=== PATIENT | male | born 1980 | race Two or more races ===

== ENCOUNTER 2018-09-25 17:13 | Emergency (ER) ==
[2018-09-25 17:18] VITALS: BP 126/84; TEMP 98.2; BMI 31.3
--- NOTE | 2018-09-25 17:42 | ED.PDOC ---
General ED Provider: Dr. TAMARA RIZZO Chief Complaint: Wrist Pain/Injury Stated Complaint: Lt Wrist Pain. Injured when attempting to do a back flip 2 days ago. Landed with hand outstretched. Time Seen by Physician: 17:20 Mode of Arrival: Walk-In Information Source: Patient Exam Limitations: No limitations Nursing and Triage Documentation Reviewed and Agree: Yes Does patient meet sepsis criteria?: No If yes, has appropriate treatment been initiated?: No System Inflammatory Response Syndrome: Not Applicable Sepsis Protocol: For patient's 13 years and over: Temp is 96.8 and below OR 101 and greater Pulse >90 BPM Resp >20/minute Acutely Altered Mental Status Are patient's symptoms suggestive of a new infection, such as: -Pneumonia -Skin, Soft Tissue -Endocarditis -UTI -Bone, Joint Infection -Implantable Device -Acute Abdominal Infection -Wound Infection -Meningitis -Blood Stream Catheter Infection -Unknown Musculoskeletal Complaint Exam - Hand/Wrist Complaint/Exam Location of Pain: Reports: Left, Wrist Mechanism of Injury: Reports: Trauma Onset/Duration: 2 days Symptoms Are: Still present Onset of Pain: Reports: Immediate Initial Severity: Severe Current Severity: Moderate Location: Reports: Diffuse Character: Reports: Aching, Throbbing Alleviating: Reports: Rest Aggravating: Reports: Movement Associated Signs and Symptoms: Reports: Swelling (pain ) Dominant Hand: Right Related Surgical History: Reports: None Hand/Wrist Findings: Present: Swelling Tenderness: Present: Radius Differential Diagnoses: Closed Fracture, Sprain, Strain Review of Systems - Review Of Systems Constitutional: Reports: No symptoms Eyes: Reports: No symptoms Ears, Nose, Mouth, Throat: Reports: No symptoms Respiratory: Reports: No symptoms Cardiac: Reports: No symptoms GI: Reports: No symptoms : Reports: No symptoms Musculoskeletal: Reports: No symptoms Skin: Reports: No symptoms Neurological: Reports: No symptoms Endocrine: Reports: No symptoms Hematologic/Lymphatic: Reports: No symptoms All Other Systems: Reviewed and Negative Past Medical History - Past Medical History Previously Healthy: Yes Endocrine: Reports: None Cardiovascular: Reports: None Respiratory: Reports: None Hematological: Reports: None Gastrointestinal: Reports: None Genitourinary: Reports: None Neuro/Psych: Reports: None Musculoskeletal: Reports: None Cancer: Reports: None - Surgical History General Surgical History: Reports: None - Family History Family History: Reports: None - Social History Smoking Status: Current every day smoker Hx Substance Use: No Alcohol Screening: None Physical Exam - Physical Exam Appearance: Well-appearing, No pain distress, Well-nourished Eyes: TIMO, EOMI, Conjunctiva clear ENT: Ears normal, Nose normal, Oropharynx normal Respiratory: Airway patent, Breath sounds clear, Breath sounds equal, Respirations nonlabored Cardiovascular: RRR, Pulses normal, No rub, No murmur GI/: Soft, Nontender, No masses, Bowel sounds normal, No Organomegaly Musculoskeletal: No calf tenderness, Limited ROM, Limited strength, Edema (Lt wrist) Skin: Warm, Dry, Normal color Neurological: Sensation intact, Motor intact, Reflexes intact, Cranial nerves intact, Alert, Oriented Psychiatric: Affect appropriate, Mood appropriate Critical Care Note - Critical Care Note Total Time (mins): 0 Course - Course Orders, Labs, Meds: Orders Category Date Time Status WRIST, LEFT 3 VIEWS Stat RADS 09/25/18 17:40 Completed Vital Signs: Temp Pulse Resp BP Pulse Ox 09/25/18 17:14 98.2 F 104 H 16 126/84 97 Departure - Departure Time of Disposition: 18:45 Disposition: HOME SELF-CARE Discharge Problem: Wrist strain Instructions: Wrist Injury (ED) Condition: Good Pt referred to PMD for follow-up: Yes (PCP in 1 week) IPMP verified?: No Additional Instructions: Wrist splint(from Home) Take Ibuprofen for pain relief Ice pack to area to help with swelling Allergies/Adverse Reactions: Allergies No Known Allergies Allergy (Unverified 09/25/18 17:17) Home Medications: Ambulatory Orders 1 [No Reported Medications] 09/25/18 Disposition Discussed With: Patient, Family
--- NOTE | 2018-09-25 18:44 | DI ---
EXAM: Left wrist; PA, lateral, and oblique views HISTORY: Pain and swelling after fall COMPARISON: None FINDINGS: There is no acute fracture or dislocation. Joint spaces and alignment are maintained. Soft tissues are unremarkable. OPINION: No acute osseous abnormality of the wrist.
== END 2018-09-25 19:01 | disposition home or self-care (01) ==
LOC: ED 17:13
DX: S66.912A Strain of unspecified muscle, fascia and tendon at wrist and hand level, left hand, initial encounter (principal); W19.XXXA Unspecified fall, initial encounter; F17.210 Nicotine dependence, cigarettes, uncomplicated
CPT/HCPCS: 99282

== ENCOUNTER 2019-04-20 17:57 | Emergency (ER) ==
[2019-04-20 18:06] VITALS: BP 127/77; TEMP 99.4; BMI 32.0
[2019-04-20] MEDS ORDERED: BACTRIM DS 800/160 MG PO STA (18:10)
[2019-04-20] MEDS ORDERED: ROCEPHIN IM STA (18:10)
[2019-04-20] MEDS ORDERED: LIDOCAINE HCL 1% SDV IM STA (18:10)
--- NOTE | 2019-04-20 18:15 | ED.PDOC ---
General ED Provider: Dr. DANIEL KAISER Chief Complaint: Abscess Stated Complaint: abcess ongroin /scrotum Time Seen by Physician: 18:00 Mode of Arrival: Walk-In Information Source: Patient Exam Limitations: No limitations Primary Care Provider: MARCIAL CUELLO Nursing and Triage Documentation Reviewed and Agree: Yes Does patient meet sepsis criteria?: No System Inflammatory Response Syndrome: Not Applicable Sepsis Protocol: For patient's 13 years and over: Temp is 96.8 and below OR 101 and greater Pulse >90 BPM Resp >20/minute Acutely Altered Mental Status Are patient's symptoms suggestive of a new infection, such as: -Pneumonia -Skin, Soft Tissue -Endocarditis -UTI -Bone, Joint Infection -Implantable Device -Acute Abdominal Infection -Wound Infection -Meningitis -Blood Stream Catheter Infection -Unknown Review of Systems - Review Of Systems Constitutional: Reports: No symptoms Eyes: Reports: No symptoms Ears, Nose, Mouth, Throat: Reports: No symptoms Respiratory: Reports: No symptoms Cardiac: Reports: No symptoms GI: Reports: No symptoms : Reports: No symptoms Musculoskeletal: Reports: No symptoms Skin: Reports: Other (ABCESS SEE PHOTOS) Neurological: Reports: No symptoms Endocrine: Reports: No symptoms Hematologic/Lymphatic: Reports: No symptoms All Other Systems: Reviewed and Negative Past Medical History - Past Medical History Previously Healthy: Yes Endocrine: Reports: None Cardiovascular: Reports: None Respiratory: Reports: None Hematological: Reports: None Gastrointestinal: Reports: None Genitourinary: Reports: None Neuro/Psych: Reports: None Musculoskeletal: Reports: None Cancer: Reports: None - Surgical History General Surgical History: Reports: None - Family History Family History: Reports: None - Social History Smoking Status: Current every day smoker, Light tobacco smoker Hx Substance Use: No Alcohol Screening: Occasionally Physical Exam - Physical Exam Appearance: Well-appearing, No pain distress, Well-nourished Eyes: TIMO, EOMI, Conjunctiva clear ENT: Ears normal, Nose normal, Oropharynx normal Respiratory: Airway patent, Breath sounds clear, Breath sounds equal, Respirations nonlabored Cardiovascular: RRR, Pulses normal, No rub, No murmur GI/: Soft, Nontender, No masses, Bowel sounds normal, No Organomegaly Musculoskeletal: Normal strength, ROM intact, No edema, No calf tenderness Skin: Warm, Dry (ABSCESS OF THE RIGHT SCROTUM AND INNER TIGH EACH ABSCESS MEASURE 4MM SEE PHOTOS) Neurological: Sensation intact, Motor intact, Reflexes intact, Cranial nerves intact, Alert, Oriented Psychiatric: Affect appropriate, Mood appropriate Critical Care Note - Critical Care Note Total Time (mins): 0 Course - Course Orders, Labs, Meds: Orders Category Date Time Status Ceftriaxone Sodium [Rocephin] MEDS 04/20/19 18:10 Discontinued 1 gm IM ONCE STA Lidocaine HCl/Pf [Lidocaine HCl 1% Sdv] MEDS 04/20/19 18:10 Discontinued 2.1 ml IM ONCE STA Sulfamethoxazole/Trimethoprim [Bactrim Ds 800/160 mg] MEDS 04/20/19 18:10 Discontinued 1 tab PO ONCE STA Medications Discontinued Medications Generic Name Dose Route Start Last Admin Trade Name Freq PRN Reason Stop Dose Admin Ceftriaxone Sodium 1 gm 04/20/19 18:10 Rocephin IM 04/20/19 18:11 ONCE STA Lidocaine HCl 2.1 ml 04/20/19 18:10 Lidocaine Hcl 1% Sdv IM 04/20/19 18:11 ONCE STA Trimethoprim/Sulfamethoxazole 1 tab 04/20/19 18:10 Bactrim Ds 800/160 Mg PO 04/20/19 18:11 ONCE STA Vital Signs: Temp Pulse Resp BP Pulse Ox 04/20/19 17:57 99.4 F 99 H 20 127/77 96 Departure - Departure Time of Disposition: 18:14 Disposition: HOME SELF-CARE Discharge Problem: Abscess Instructions: Abscess Follow-up (ED), Abscess (ED) Condition: Good Pt referred to PMD for follow-up: Yes IPMP verified?: No Additional Instructions: Please call your Family Physician as soon as possible to schedule a follow-up appointment. take bactrim starting dose IN AM . YOU TOOK THE FIRST DOSE AT [facility] Prescriptions: Hydrocodone Bit/Acetaminophen [[place] 10-325] 1 each PO Q6HR #14 tablet Sulfamethoxazole/Trimethoprim [Bactrim Ds 800/160 mg] 1 tab PO Q12HR 7 Days #14 tablet Allergies/Adverse Reactions: Allergies citric acid Allergy (Severe, Verified 04/20/19 18:03) Throat swells Patient will notify drugstore Home Medications: Ambulatory Orders Hydrocodone Bit/Acetaminophen [[place] 10-325] 1 each PO Q6HR #14 tablet 04/20/19 Meloxicam [Mobic] 15 mg PO DAILY 04/20/19 Sulfamethoxazole/Trimethoprim [Bactrim Ds 800/160 mg] 1 tab PO Q12HR 7 Days #14 tablet 04/20/19 Disposition Discussed With: Patient
== END 2019-04-20 18:46 | disposition home or self-care (01) ==
LOC: ED 17:57
DX: N49.2 Inflammatory disorders of scrotum (principal); L02.415 Cutaneous abscess of right lower limb; F17.210 Nicotine dependence, cigarettes, uncomplicated
CPT/HCPCS: 96372; 99282

== ENCOUNTER 2019-05-05 11:33 | Outpatient (CLI) | END 2019-05-05 11:34 | disposition home or self-care (01) | LOC: RHC-LAB 11:33 | PROVIDERS: ATTEND Nurse Practitioner Family | DX: M32.9 Systemic lupus erythematosus, unspecified (principal) | CPT/HCPCS: 36415; 80053; 85025; 86140 ==

== ENCOUNTER 2019-07-12 12:56 | Emergency (ER) ==
[2019-07-12 13:13] VITALS: BP 114/72; TEMP 97.6; BMI 27.3
--- NOTE | 2019-07-12 13:46 | ED.PDOC ---
General ED Provider: Dr. TAMARA RIZZO Chief Complaint: Shortness of Air Stated Complaint: Short of Air. States having flare of his "lupus"; Having joint and muscle aching. States is homeless and outside gets very hot. Time Seen by Physician: 13:15 Mode of Arrival: Walk-In Information Source: Patient Exam Limitations: No limitations Primary Care Provider: MARCIAL CUELLO Nursing and Triage Documentation Reviewed and Agree: Yes Does patient meet sepsis criteria?: No If yes, has appropriate treatment been initiated?: No System Inflammatory Response Syndrome: Not Applicable Sepsis Protocol: For patient's 13 years and over: Temp is 96.8 and below OR 101 and greater Pulse >90 BPM Resp >20/minute Acutely Altered Mental Status Are patient's symptoms suggestive of a new infection, such as: -Pneumonia -Skin, Soft Tissue -Endocarditis -UTI -Bone, Joint Infection -Implantable Device -Acute Abdominal Infection -Wound Infection -Meningitis -Blood Stream Catheter Infection -Unknown Respiratory Complaint Exam - Respiratory Complaint/Exam Symptoms Are: Still present Timing: Intermittent Initial Severity: Mild Current Severity: Mild Location: Chest Aggravating: Reports: None Alleviating: Reports: None Associated Signs and Symptoms: Reports: Increased thirst Related History: Denies: Similar episode, Allergic reaction, Seasonal allergies , MRSA, VRE History of Healthcare-Acquired Pneumonia: No Related Surgical History: Reports: None Pulmonary Embolism Risk Factors: None Cardiac Risk Factors: Reports: None Pseudomonas Risk Factors: Reports: None Tuberculosis Risk Factors: Reports: None Status Asthmaticus Risk Factors: Reports: None Home Oxygen Use: No Recent Stress Test: No Recent Echo/LV Function: No Current Antibiotic Use: No Current Asthma Medication Use: No Respiratory Distress: None Inadequate Respiratory Effort: No Dysphagia Present: No Stridor Present: No JVD Present: No Accessory Muscle Use: No Retractions: Not Present Diminished Breath Sounds: No Sinus Tenderness: None Grunting Respirations: No Kussmaul Respirations: No Differential Diagnoses: Bronchospasm, URI Review of Systems - Review Of Systems Constitutional: Reports: Loss of appetite Eyes: Reports: No symptoms Ears, Nose, Mouth, Throat: Reports: No symptoms Respiratory: Reports: Short of air Cardiac: Reports: No symptoms GI: Reports: No symptoms : Reports: No symptoms Musculoskeletal: Reports: Back pain, Joint pain Skin: Reports: Lesions Neurological: Reports: No symptoms Endocrine: Reports: No symptoms Hematologic/Lymphatic: Reports: No symptoms All Other Systems: Reviewed and Negative Past Medical History - Past Medical History Previously Healthy: Yes Endocrine: Reports: None Cardiovascular: Reports: None Respiratory: Reports: None Hematological: Reports: None Gastrointestinal: Reports: None Genitourinary: Reports: None Neuro/Psych: Reports: None Musculoskeletal: Reports: None, Other (LUPUS) Cancer: Reports: None - Surgical History General Surgical History: Reports: None - Family History Family History: Reports: None - Social History Smoking Status: Current every day smoker, Light tobacco smoker Hx Substance Use: No Alcohol Screening: Occasionally Physical Exam - Physical Exam Appearance: Ill-appearing Ill-appearing: Mild Pain Distress: Mild Eyes: TIMO, EOMI, Conjunctiva clear ENT: Ears normal, Nose normal, Oropharynx normal Neck: Supple Respiratory: Airway patent, Breath sounds clear, Breath sounds equal, Respirations nonlabored Cardiovascular: RRR, Pulses normal, No rub, No murmur GI/: Soft, Nontender, No masses, Bowel sounds normal, No Organomegaly Musculoskeletal: Normal strength, ROM intact, No edema, No calf tenderness Skin: Warm, Dry, Normal color Neurological: Sensation intact Psychiatric: Affect appropriate, Mood appropriate Interpretation - Radiology Interpretation Radiology Interpretation By: Radiologist Radiology Results: No acute changes Exam Interpreted: CXR Re-Evaluation - Re-Evaluation Time of Re-Evaluation: 17:30 Status: Improved Vital Signs Stable: Yes Appearance: NAD Lungs: Clear Skin: Warm and Dry Neuro: Alert and Oriented X3 CV: RRR Critical Care Note - Critical Care Note Total Time (mins): 60 Course - Course Hematology/Chemistry: 07/12/19 13:25 07/12/19 13:25 Orders, Labs, Meds: Lab Review 07/12/19 07/12/19 13:25 13:25 WBC 12.89 H RBC 4.58 L Hgb 12.8 L Hct 39.5 L MCV 86.2 MCH 27.9 MCHC 32.4 RDW Coeff of Gian 13.6 Plt Count 405 Immature Gran % (Auto) 0.4 Neut % (Auto) 65.9 Lymph % (Auto) 25.7 [place] % (Auto) 7.2 Eos % (Auto) 0.5 Baso % (Auto) 0.3 Immature Gran # (Auto) 0.1 Neut # (Auto) 8.5 H Lymph # (Auto) 3.3 [place] # (Auto) 0.9 Eos # (Auto) 0.1 Baso # (Auto) 0.0 ESR 67 H Sodium 139.1 Potassium 3.49 L Chloride 103.9 Carbon Dioxide 24.7 Anion Gap 13.99 BUN 13.7 Creatinine 1.11 H Estimated GFR (MDRD) 74.00 BUN/Creatinine Ratio 12.34 Glucose 96.9 Calcium 9.96 Magnesium 2.24 Total Bilirubin 0.43 AST 20.6 ALT 15.8 Alkaline Phosphatase 84.1 Total Creatine Kinase 99.1 Total Protein 7.72 Albumin 4.28 Globulin 3.44 Albumin/Globulin Ratio 1.24 Orders Category Date Time Status CBC W/ AUTO DIFF Stat LAB 07/12/19 13:25 Completed CMP [COMPREHENSIVE METABOLIC PANEL] Stat LAB 07/12/19 13:25 Completed CPK [CREATINE KINASE] Stat LAB 07/12/19 13:25 Completed ESR Stat LAB 07/12/19 13:25 Completed MAGNESIUM Stat LAB 07/12/19 13:25 Completed Methylprednisolone Sod Succ/Pf [Solu-Medrol 125 mg] MEDS 07/12/19 17:41 Discontinued 125 mg IVP ONCE STA Potassium Chloride in 0.9%NaCl [Sodium Chloride 0.9%- MEDS 07/12/19 14:52 Discontinued KCl 20 Meq] 1,000 ml IV BOLUS CHEST, 2 VIEWS PA & LAT Stat RADS 07/12/19 13:44 Completed Medications Discontinued Medications Generic Name Dose Route Start Last Admin Trade Name Freq PRN Reason Stop Dose Admin Potassium Chloride/Sodium Chloride 1,000 mls @ 500 mls/hr 07/12/19 14:52 15:03 Sodium Chloride 0.9%-Kcl 20 Meq IV 07/12/19 16:51 500 mls/hr BOLUS STA Administration Methylprednisolone Sodium Succinate 125 mg 07/12/19 17:41 07/12/19 17:49 Solu-Medrol 125 Mg IVP 07/12/19 17:42 125 mg ONCE STA Administration Vital Signs: Temp Pulse Resp BP Pulse Ox 07/12/19 12:57 97.6 F 94 H 20 114/72 98 Departure - Departure Time of Disposition: 17:50 Disposition: HOME SELF-CARE Discharge Problem: Lupus, Hypokalemia, Dehydration Instructions: Dehydration (ED), Potassium Content of Foods List (ED), Lupus Erythematosus (DC) Condition: Stable Pt referred to PMD for follow-up: Yes IPMP verified?: No Additional Instructions: stay well hydrated Ibuprofen for pain as needed Wound care to back lesions Allergies/Adverse Reactions: Allergies citric acid Allergy (Severe, Verified 07/12/19 13:07) Throat swells Patient will notify drugstore Home Medications: Ambulatory Orders 1 [No Reported Medications] 07/12/19 Disposition Discussed With: Patient Skin Complaint Exam - Skin/Soft Tissue Complaint/Exam Onset/Duration: unsure Symptoms Are: Still present Timing: Constant Initial Severity: Moderate Current Severity: Mild Location: posterior thoracic Character: Reports: Redness, Raised Aggravating: Reports: Heat Alleviating: Reports: None Associated Signs and Symptoms: Denies: Fever, Chills, Itching, Drainage, Bruising, Tenderness, Red streaks, Joint swelling Related History: Denies: Similar episode Related Surgical History: Reports: None Recent Exposure to Others w/Similar Symptoms: No Skin Findings: Present: Erythema (small sebacerous cyst posterior-lower throracic /abraided arear rt post shoulder), Pustules Differential Diagnoses: Other (Epithelial inlcusion Cyst/Deep abrasion )
--- NOTE | 2019-07-12 14:07 | DI ---
EXAM: Chest two views Date: 07/12/2019 Comparison: None. History: Symptoms of asthma, short of breath, cough. Systemic lupus erythematosus FINDINGS: PA and lateral views of the chest obtained. Cardiac silhouette and pulmonary vascularity are normal. No consolidation, pleural effusion, or evidence of pneumothorax. No acute fractures in the chest. Chronic mild anterior wedging of multiple mid and lower thoracic vertebral bodies. Impression: No active chest disease.
[2019-07-12] MEDS ORDERED: SODIUM CHLORIDE 0.9%-KCL 20 MEQ 1,000 ML IV STA (14:52)
[2019-07-12] MEDS ORDERED: SOLU-MEDROL 125 MG IVP STA (17:41)
== END 2019-07-12 17:55 | disposition home or self-care (01) ==
LOC: ED 12:56
DX: E87.6 Hypokalemia (principal); E86.0 Dehydration; M32.9 Systemic lupus erythematosus, unspecified; F17.210 Nicotine dependence, cigarettes, uncomplicated
CPT/HCPCS: 36415; 80053; 82550; 83735; 85025; 85651; 96361; 96374; 99284